=== PATIENT | female | born 1955 | race African-American/Black ===

== ENCOUNTER 2017-03-15 20:30 | Emergency (ER) | payer MEDICARE, MEDICAID ==
[~2017-03-15] VITALS: Ht 162.6 cm; Wt 120.2 kg
[2017-03-15] MEDS ORDERED: NORCO 5-325 TA1 EACH ORAL (20:47)
[2017-03-15 20:55] VITALS: BP 109/65
--- NOTE | 2017-03-15 21:07 | Emergency Room Report ---
History of Present Illness General Chief Complaint: Dizziness Source: Patient Present Illness HPI Patient presents with 2 problems. The patient complains of a worsening of her vertigo. She is out of her meclizine. She feels the world spinning and has nausea without any vomiting. She denies any fevers, tinnitus, URI sy. In addition to that she's complaining about bilateral leg pain. She sustained a wound in her right lower leg in October that is slowly healing. She denies any fevers or chills. There's no calf pain. The pain is in her knees bilaterally. She's tried taking Tylenol and ibuprofen. The pain is somewhat better with that but she still has pain. No chest pain, palpitations, GONZALEZ. Denies any dysuria or change in her bowels. Allergies: Coded Allergies: No Known Allergies (Unverified , 03/15/17) Patient History Past Medical History: see triage record Social History: Denies: alcohol use, drug use, smoking Social History Narrative with grandson Reviewed Nursing Documentation: PMH: Agreed, PSxH: Agreed Review of Systems All Other Systems: negative except mentioned in HPI Physical Exam Vital Signs Date Time Temp Pulse Resp B/P Pulse Ox O2 Delivery O2 Flow Rate FiO2 03/15/17 20:38 98.1 93 16 109/65 96 Room Air Sp02 EP Interpretation: reviewed, normal General Appearance: well appearing, no apparent distress, GCS 15 Head: normocephalic, other - frontal bossing Eyes: bilateral eye PERRL, bilateral eye normal inspection, bilateral eye other - no nystagmus ENT: normal pharynx, TMs + canals normal, moist mucus membranes Neck: supple Respiratory: lungs clear, normal breath sounds Cardiovascular #1: regular rate, rhythm, edema Cardiovascular #2: 2+ radial (R) Gastrointestinal: normal inspection, normal bowel sounds, non tender, no mass, non-distended, overweight Musculoskeletal: gait/station normal, normal range of motion, no calf tenderness, Alina's Sign negative, other - DJD of knees, some difficulty with ambulating and sitting (back and knees) Neurologic: alert, oriented x3, grossly normal Psychiatric: depressed affect Skin: normal inspection, warm/dry, other - leg ulcer L anterior leg, no erythema Medical Decision Making Diagnostic Impression: Primary Impression: Dizziness Additional Impression: Leg pain, bilateral ER Course The patient has vertigo and leg pain. Differential includes labyrinthitis, benign positional vertigo, cerebellar disease, medication abnormality, viral syndrome. Regarding her legs exam is against DVT. Considerations are also cellulitis and different arthropathies including gout, pseudogout, DJD and rheumatoid. Labs will be obtained. An EKG needs to be taken to exclude cardiac disease. CT is not indicated with no focality or nystagmus. The patient is treated with Zofran Ativan and Toradol. The patient refused most of her medication ordered here. Before her labs came back and she insisted on leaving the emergency department in order to take her grandson to the car. She never did return to the emergency department after that. Labs with minimally elevated uric acid which could indicate gout. Laboratory Tests Test 03/15/17 21:15 White Blood Count 11.4 K/UL (4.8-10.8) H Red Blood Count 3.84 M/UL (4.20-5.40) L Hemoglobin 12.2 G/DL (12.0-16.0) Hematocrit 37.9 % (37.0-47.0) Mean Corpuscular Volume 99 FL (80-99) Mean Corpuscular Hemoglobin 31.9 PG (27.0-31.0) H Mean Corpuscular Hemoglobin Concent 32.3 G/DL (32.0-36.0) Red Cell Distribution Width 13.3 % (11.6-14.8) Platelet Count 311 K/UL (150-450) Mean Platelet Volume 6.3 FL (6.5-10.1) L Neutrophils (%) (Auto) 70.2 % (45.0-75.0) Lymphocytes (%) (Auto) 21.4 % (20.0-45.0) Monocytes (%) (Auto) 5.6 % (1.0-10.0) Eosinophils (%) (Auto) 1.5 % (0.0-3.0) Basophils (%) (Auto) 1.4 % (0.0-2.0) Prothrombin Time 10.7 SEC (9.30-11.50) Prothrombin Time INR 1.0 (0.9-1.1) PTT 37 SEC (23-33) H Sodium Level 139 mEQ/L (135-145) Potassium Level 3.2 mEQ/L (3.4-4.9) L Chloride Level 99 mEQ/L (98-107) Carbon Dioxide Level 28 mEQ/L (20-30) Anion Gap 12 (5-15) Blood Urea Nitrogen 11 mg/dL (7-23) Creatinine 0.8 mg/dL (0.5-0.9) Estimate Glomerular Filtration Rate > 60 mL/min (>60) Glucose Level 104 mg/dL (74-106) Uric Acid 7.7 mg/dL (3.0-7.5) H Calcium Level 9.0 mg/dL (8.6-10.2) Total Bilirubin 0.2 mg/dL (0.0-1.2) Aspartate Amino Transferase (AST) 16 U/L (5-40) Alanine Aminotransferase (ALT) 10 U/L (3-33) Alkaline Phosphatase 63 U/L (35-104) Total Creatine Kinase 118 U/L (26-140) Troponin I < 0.30 ng/mL (<=0.30) Pro-B-Type Natriuretic Peptide 340 pg/mL (0-125) H Total Protein 7.1 g/dL (6.6-8.7) Albumin 4.7 g/dL (3.5-5.2) Globulin 2.4 g/dL Albumin/Globulin Ratio 1.9 (1.0-2.7) EKG Diagnostic Results Rate: normal Rhythm: NSR ST Segments: no acute changes Rhythm Strip Diag. Results EP Interpretation: yes Rhythm: NSR, no PVC's, no ectopy Chest X-Ray Diagnostic Results Chest X-Ray Diagnostic Results : Chest X-Ray Ordered: Yes # of Views/Limited/Complete: 1 View Indication: Other EP Interpretation: Yes Interpretation: no consolidation, no effusion, no pneumothorax, no acute cardiopulmonary disease Impression: No acute disease Interpreting ER Provider: signed German Zapata MD Last Vital Signs Date Time Temp Pulse Resp B/P Pulse Ox O2 Delivery O2 Flow Rate FiO2 03/15/17 23:10 98.1 16 109/65 96 Room Air 03/15/17 20:38 93 Status: improved Disposition: ELOPED Condition: Improved German Zapata M.D. Mar 15, 2017 21:07
[2017-03-15] MEDS ORDERED: LORazepam Inj 2mg/ml 1ml IV ONE (21:15)
[2017-03-15] MEDS ORDERED: Ketorolac 30mg Inj IV ONE (21:15)
[2017-03-15 21:59] LABS: BASOPHILS % (AUTO) 1.4 % (0.0-2.0); EOSINOPHILS % (AUTO) 1.5 % (0.0-3.0); LYMPHOCYTES % (AUTO) 21.4 % (20.0-45.0); MEAN CORPUSCULAR HEMOGLOBIN 31.9 PG (27.0-31.0); MEAN CORPUSCULAR HGB CONC 32.3 G/DL (32.0-36.0); MEAN CORPUSCULAR VOLUME 99 FL (80-99); MEAN PLATELET VOLUME 6.3 FL (6.5-10.1); MONOCYTES % (AUTO) 5.6 % (1.0-10.0); NEUTROPHILS % (AUTO) 70.2 % (45.0-75.0); PLATELET COUNT 311 K/UL (150-450); RED BLOOD COUNT 3.84 M/UL (4.20-5.40); RED CELL DISTRIBUTION WIDTH 13.3 % (11.6-14.8); WHITE BLOOD COUNT 11.4 K/UL (4.8-10.8)
[2017-03-15 22:12] LABS: PROTHROMBIN TIME 10.7 SEC (9.30-11.50)
[2017-03-15 22:28] LABS: TROPONIN I < 0.30 ng/mL (<=0.30)
[2017-03-15 22:32] LABS: ALANINE AMINOTRANSFERASE 10 U/L (3-33); ALBUMIN/GLOBULIN RATIO 1.9 (1.0-2.7); ANION GAP 12 (5-15); ASPARTATE AMINO TRANSFERASE 16 U/L (5-40); CARBON DIOXIDE 28 mEQ/L (20-30); CHLORIDE 99 mEQ/L (98-107); CREATININE 0.8 mg/dL (0.5-0.9); GLOMERULAR FILTRATION RATE > 60 mL/min (>60); HEMOLYSIS 4; POTASSIUM 3.2 mEQ/L (3.4-4.9); SODIUM 139 mEQ/L (135-145); TOTAL PROTEIN 7.1 g/dL (6.6-8.7); URIC ACID 7.7 mg/dL (3.0-7.5)
[2017-03-15 23:10] VITALS: BP 109/65
--- NOTE | 2017-03-16 15:43 | Diagnostic Imaging Report ---
Indication: Shortness of breath Technique: One view of the chest Comparison: none Findings: Inspiration is suboptimal. Is crowding of the vascular markings. Lungs and pleural spaces are otherwise clear. Heart size is normal. Aorta is tortuous. Upper mediastinum is unremarkable Impression: Hypoventilatory exam. No definite acute process This agrees with the preliminary interpretation provided by the emergency room physician
--- NOTE | 2017-03-18 17:16 | Cardiology Report ---
APPROVED REPORT EKG Measurement Heart [id number] MI [id number] Normal sinus rhythm Normal ECG
== END 2017-03-15 23:10 | disposition left against medical advice (07) ==
LOC: EMR 22:21
DX: R42 Dizziness and giddiness (principal); M79.605 Pain in left leg; M79.604 Pain in right leg; L97.929 Non-pressure chronic ulcer of unspecified part of left lower leg with unspecified severity
CPT/HCPCS: 36415; 71010; 80053; 82550; 83880; 84484; 84550; 85025; 85610; 85730; 93005; 96374; 96375; 99284; J1885; J2405